=== PATIENT | female | born 1980 | race Caucasian/White ===

== ENCOUNTER 2017-02-07 11:40 | Inpatient (IN) | payer OTHER ==
[~2017-02-07] VITALS: Ht 180.3 cm; Wt 92.0 kg
[~2017-02-07 11:40] MED LIST: PRENATAL MULTI1 EACH PO
--- NOTE | 2017-03-26 08:44 | NUR ---
03/26/17 0844 Bc Foss SEE [facility] FOR VITAL SIGNS. INITAL FUNDAL CHECK DONE AT 0837. SOFT BALL SIZED CLOTS NOTED WITH JOHANNA BLEEDING. UTERUS COMPRESSES FROM 2+ TO ONE UNDER UMBILICUS AFTER FUNDAL PRESSURE. DR BUENROSTRO CALLED AND AT BEDSIDE BY 0840. ORDERS RECIEVED FOR A NEW BAG OF FLUID WITH 30 OF PIT.
--- NOTE | 2017-03-26 08:57 | PR ---
[facility] [address] [facility] [place] [address] Signed PP Progress Notes Datetime Report Generated by CPN: 03/26/2017 08:57 SUBJECTIVE: [id number] Pain: Within normal limits Nausea/Vomiting: Denies Vital Signs: [id number] Vital Signs: Reviewed; Within Normal Limits EXAM: [id number] Lochia: Abnormal Extremities: Normal Incision: Normal IMPRESSION/PLAN/PROCEDURES: [id number] Progress Notes: Immediate passed several large clots, no pain, no dizziness. Massage stopped bleeding and uteruns noted to be firm. Will give additional Pitocin, continue close monitoring Signing Physician: eLeroy Buenrostro MD CC: *Electronically Signed* 03/26/17 0857 LEEROY BUENROSTRO MD PATIENT NAME: HEIDY ECHEVERRIA PROGRESS NOTE DATE OF : 84 PHYSICIAN: LEEROY BUENROSTRO MD RPT #: [id number] REPORT IS CONFIDENTIAL AND NOT TO BE RELEASED WITHOUT AUTHORIZATION
--- NOTE | 2017-03-26 10:17 | OR ---
[facility] [address] [place] [address] Signed DATE OF OPERATION: 03/26/2017 SURGEON: Clay Ferreira MD PREOPERATIVE DIAGNOSIS: Term , previous section x2. POSTOPERATIVE DIAGNOSIS: Term , previous section x2. PROCEDURE: Repeat low transverse segment section. Delivery of live male . SURGEON: Clay Ferreira MD. SKI PATROL: Dr. Mejias. ANESTHESIA: Spinal. ESTIMATED BLOOD LOSS: 600 mL. COMPLICATIONS: None. DRAINS: Mora to bladder. FINDINGS: Live male infant. Apgars 9 and 9. Weight 7 pounds 14 ounces. Normal uterus, normal tubes and ovaries bilateral. DESCRIPTION: The patient was brought into the operating room, placed in supine position. After adequate spinal anesthesia was obtained, she was prepped and draped in usual sterile fashion. Mora catheter was placed in the bladder. A Pfannenstiel skin incision was made through previous surgical scar using a scalpel. The subcutaneous tissue was Electronically Signed By: CLAY FERREIRA MD 03/26/17 1017 PATIENT NAME: HEIDY ECHEVERRIA OPERATIVE REPORT DATE OF : 84 PHYSICIAN: CLAY FERREIRA MD REPORT #: [id number] REPORT IS CONFIDENTIAL AND NOT TO BE RELEASED WITHOUT AUTHORIZATION [facility] [address] [place] [address] Signed dissected with the Bovie and the scalpel. The fascia was nicked with scalpel and extended in transverse fashion using curved scissors. The subcutaneous tissue and fascia were somewhat scarred and the abdominal musculature was somewhat scarred and attached to the fascia. The abdominal musculature was bluntly and sharply from the fascia above and below the incision. The abdominal musculature was bluntly and sharply along the midline using Theodore scissors. The peritoneum was grasped with hemostats, elevated, nicked with Theodore scissors and extended in vertical fashion using Theodore scissors. The uterus was palpated and no adhesions were noted to the uterus. The Tristen self-retaining retractor was inserted into the incision and tightened in place. The lower uterine segment was identified and the bladder identified. The vesicouterine peritoneum was grasped with pickups, elevated, and nicked with Metzenbaum scissors and extended in transverse fashion using Metzenbaum scissors. This was taken down just to help lower the bladder away from the lower uterine segment. The lower uterine segment was somewhat thin. It was nicked in the midline, grasped with Allis-Homer clamps, elevated and then opened, and the incision then extended in a transverse fashion using finger dissection. A bulging bag of clear fluid was drained from the incision. This was opened with pickups with teeth. The infant was noted to be in vertex ELLIS presentation. The head was easily delivered from the incision. The rest of the infant was easily delivered from the incision. The mouth and nose were suctioned to bulb syringe while the cord was doubly clamped and cut. The was passed off the table in good condition to the awaiting nurse. The placenta was manually removed and uterine cavity explored with lap pad to remove any retained membranes. Angle stitch of 0 Monocryl was placed in one end of the incision and running locking stitch of 0 Monocryl starting at the other end used to close the incision. A 2nd running stitch of 0 Monocryl was used to imbricate the 1st layer. Good hemostasis was noted. The entire pelvis was irrigated, suctioned, examined, and noted to have good hemostasis. The Tristen self-retaining retractor was removed. A sheet of ACell was placed over the lower uterine segment to help with healing. The anterior wall of the peritoneum closed using running stitch of 2-0 Vicryl suture. The abdominal musculature was reapproximated using interrupted stitches of 0 Vicryl suture. The abdominal wall was then irrigated, suctioned, and examined and any superficial bleeding spots cauterized with the Bovie. At this point, good hemostasis was noted. So powdered ACell was sprinkled on the abdominal musculature. The fascia was then closed using 2 running stitches of 0 Vicryl suture meeting in the midline. The subcutaneous tissue was irrigated, suctioned, and examined and any bleeding spots are cauterized with the Bovie. The subcutaneous tissue was closed using interrupted stitches of 3-0 Vicryl suture after sprinkling the remaining powdered ACell. The skin was reapproximated using skin clips. The patient tolerated the procedure well and went to recovery room in good condition. The sponge, needle, and instrument count correct at the end of the procedure. Electronically Signed By: CLAY FERREIRA MD 03/26/17 1017 PATIENT NAME: HEIDY ECHEVERRIA OPERATIVE REPORT DATE OF : 84 PHYSICIAN: CLAY FERREIRA MD REPORT #: [id number] REPORT IS CONFIDENTIAL AND NOT TO BE RELEASED WITHOUT AUTHORIZATION [address] [address] Signed MD OSEI Robledo/MODL /[id number] Electronically Signed By: CLAY FERREIRA MD 03/26/17 1017 PATIENT NAME: JUWANHEIDY OPERATIVE REPORT DATE OF : 84 PHYSICIAN: CLAY FERREIRA MD REPORT #: [id number] REPORT IS CONFIDENTIAL AND NOT TO BE RELEASED WITHOUT AUTHORIZATION
--- NOTE | 2017-03-26 11:00 | NUR ---
blood completed at 1040. Report given to FBC RN. FBC RN to complete blood form.
--- NOTE | 2017-03-26 13:07 | PR ---
[facility] [address] [facility] [place] [address] Signed PP Progress Notes Datetime Report Generated by CPN: 03/26/2017 13:07 SUBJECTIVE: [id number] Pain: Within normal limits Nausea/Vomiting: Denies Vital Signs: [id number] Vital Signs: Reviewed; Within Normal Limits Notable Details: Hgb/Hct = 10.4/30.5 DIC Panel: no evidence of DIC EXAM: [id number] Abdomen/Uterus: Normal Lochia: Normal Extremities: Normal Incision: Normal IMPRESSION/PLAN/PROCEDURES: [id number] Other Impression: Stable Procedures: Transfusion Other Procedures: Recieved 1 u PRBC's in Recovery Progress Notes: Doing well, minimal bleeding since Bakri Balloon insertion. Continue to monitor. Rechect H_H this evening. Signing Physician: Leeroy Buenrostro MD CC: *Electronically Signed* 03/26/17 1307 LEEROY BUENROSTRO MD PATIENT NAME: HEIDY ECHEVERRIA PROGRESS NOTE DATE OF : 84 PHYSICIAN: LEEROY BUENROSTRO MD RPT #: [id number] REPORT IS CONFIDENTIAL AND NOT TO BE RELEASED WITHOUT AUTHORIZATION
--- NOTE | 2017-03-26 13:14 | PR ---
[facility] [address] [facility] [place], [place] [address] Signed PP Progress Notes Datetime Report Generated by CPN: 03/26/2017 13:13 SUBJECTIVE: [id number] Pain: Within normal limits Nausea/Vomiting: Denies Vital Signs: [id number] Vital Signs: Reviewed; Within Normal Limits Notable Details: Hgb/Hct = 10.4/30.5 DIC Panel: no evidence of DIC EXAM: [id number] Abdomen/Uterus: Normal Lochia: Normal Extremities: Normal Incision: Normal IMPRESSION/PLAN/PROCEDURES: [id number] Other Impression: Stable Procedures: Transfusion Other Procedures: Recieved 1 u PRBC's in Recovery Progress Notes: Doing well, minimal bleeding since Bakri Balloon insertion. WIll try to keep Bakrin in place for 24 hours, continue Ancef while balloon in place. Continue to monitor. Rechect H_H this evening. Signing Physician: Clay Buenrostro MD CC: *Electronically Signed* 03/26/17 1313 CLAY BUENROSTRO MD PATIENT NAME: SHAILESH ECHEVERRIAJUAN RAO PROGRESS NOTE DATE OF : 84 PHYSICIAN: CLAY BUENROSTRO MD RPT #: [id number] REPORT IS CONFIDENTIAL AND NOT TO BE RELEASED WITHOUT AUTHORIZATION
--- NOTE | 2017-03-28 10:54 | PR ---
[facility] [address] [place] [address] Signed PP Progress Notes Datetime Report Generated by CPN: 03/28/2017 10:54 SUBJECTIVE: [id number] Pain: Within normal limits Nausea/Vomiting: Denies Vital Signs: [id number] Vital Signs: Reviewed; Within Normal Limits Notable Details: HGb/Hct = 8.7/25.2 EXAM: [id number] Abdomen/Uterus: Normal Lochia: Normal Extremities: Normal Incision: Normal IMPRESSION/PLAN/PROCEDURES: [id number] Impression: Normal progression Other Impression: PP Anemia Plan: Discharge Procedures: None Other Procedures: Bakri Balloon removed Progress Notes: Doing well without complaint, ready to go home. Signing Physician: Leeroy Buenrostro MD CC: *Electronically Signed* 03/28/17 1054 LEEROY BUENROSTRO MD PATIENT NAME: HEIDY ECHEVERRIA PROGRESS NOTE DATE OF : 84 PHYSICIAN: LEEROY BUENROSTRO MD RPT #: [id number] REPORT IS CONFIDENTIAL AND NOT TO BE RELEASED WITHOUT AUTHORIZATION
--- NOTE | 2017-03-28 15:25 | OR ---
[facility] [address] [place], [place] [address] Signed DATE OF OPERATION: 03/26/2017 SURGEON: Clay Ferreira MD Patient of Dr. Ferreira. PREOPERATIVE DIAGNOSIS: hemorrhage. POSTOPERATIVE DIAGNOSIS: hemorrhage. PROCEDURE: Exam under anesthesia, curettage, and Bakri balloon insertion. ANESTHESIA: Spinal. ESTIMATED BLOOD LOSS: Approximately [address] to OR plus an additional 100 mL in OR. COMPLICATIONS: None. DRAINS: Mora already in the bladder and Bakri balloon drain from the uterus. FINDINGS: Vagina, small amount of bright red blood. Cervix, 3 cm, no active bleeding. Uterus is enlarged. Normal with minimal clots. No additional placental tissue within the cavity. DESCRIPTION OF PROCEDURE: The patient was brought to the operating room, placed in supine position. The patient recently had section and spinal anesthesia was still working, so the patient was placed on dorsal lithotomy position and prepped and draped abdominally and vaginally for possible exploratory laparotomy in the usual sterile fashion. A weighted speculum was placed in the vagina and anterior and posterior lips of the cervix grasped with a ring forceps. The vagina and cervix were carefully inspected. Ring forceps were removed. Two fingers were placed through the cervix and the uterine cavity explored, Electronically Signed By: CLAY FERREIRA MD 03/28/17 1525 PATIENT NAME: HEIDY ECHEVERRIA OPERATIVE REPORT DATE OF : 84 PHYSICIAN: CLAY FERREIRA MD REPORT #: [id number] REPORT IS CONFIDENTIAL AND NOT TO BE RELEASED WITHOUT AUTHORIZATION [facility] [address] [place], [place] [address] Signed only a few very small clots were removed. No additional tissue was palpated. The ring forceps were placed again on the anterior and posterior lips of the cervix and a large curette carefully introduced through the cervix into the uterus and the uterine cavity carefully gently scraped in 360-degree fashion removing minimal clots. There was still some bleeding coming from the uterus, so the Bakri balloon was brought in the operating field and put together and syringe primed with sterile water. The balloon was carefully inserted through the cervix into the fundus of the uterus and slowly filled with 240 mL of fluid. The balloon could be seen at the cervical os bulging towards the cervix, but was stayed within the uterus. An abdominal ultrasound was done that confirmed the Bakri balloon within the uterus and this was confirmed. The balloon was left in place. The Mora catheter bag attached to the Bakri drain and this was carefully observed for several minutes. At this point, no additional bleeding was seen. There was a small amount of blood within the Bakri drain. Again, no more bleeding vaginally. The ring forceps and weighted speculum were removed. The patient was observed again for several minutes to make sure the bleeding was under control, so the procedure was stopped. The Mora catheter in the bladder and the Bakri catheter in uterus were remained. The patient went to recovery room in good condition. The sponge and instrument count correct at end of procedure. MD OSEI Robledo/JOSUÉL /[id number] Electronically Signed By: CLAY FERREIRA MD 03/28/17 1525 PATIENT NAME: HEIDY ECHEVERRIA OPERATIVE REPORT DATE OF : 84 PHYSICIAN: CLAY FERREIRA MD REPORT #: [id number] REPORT IS CONFIDENTIAL AND NOT TO BE RELEASED WITHOUT AUTHORIZATION
== END 2017-03-28 11:10 | disposition home or self-care (01) | DRG 765 ==
LOC: FBC 03-26 05:47
PROVIDERS: ADMIT General Practice
PROC: 0W3J0ZZ Control Bleeding in Pelvic Cavity, Open Approach (ICD-10-PCS; 2017-03-26)
PROC: 30233N1 Transfusion of Nonautologous Red Blood Cells into Peripheral Vein, Percutaneous Approach (ICD-10-PCS; 2017-03-26)
PROC: 10D00Z1 Extraction of Products of Conception, Low, Open Approach (ICD-10-PCS; principal; 2017-03-26 06:45)
DX: O34.211 Maternal care for low transverse scar from previous cesarean delivery (principal); O72.2 Delayed and secondary postpartum hemorrhage; Z37.0 Single live birth; Z3A.39 39 weeks gestation of pregnancy; O90.81 Anemia of the puerperium
CPT/HCPCS: 00940; 01961; 36415; 36430; 85025; 85027; 85379; 85384; 85610; 85730; 86850; 86900; 86901; 86920; C1763; J0461; J0690; J1200; J1885; J2274; J2405; J2590; J2704; J2765; J3010; J7040; J7120; P9016

== ENCOUNTER 2024-01-14 05:48 | Day surgery (SDC) | payer OTHER ==
[2024-01-09 15:34] VITALS: BP 135/84
[2024-01-13 14:35] LABS: ABO O; RH POSITIVE
[2024-01-13 14:36] LABS: ANTIBODY SCREEN NEGATIVE
[2024-01-13 14:43] LABS: AHG CROSSMATCH COMPATIBLE
[~2024-01-14] VITALS: Ht 182.9 cm; Wt 84.1 kg
[~2024-01-14 05:48] MED LIST changes: +LACTATED RINGER'S 1,000 ML IV SCH
[2024-01-14 05:57] VITALS: BP 125/89
[2024-01-14] MEDS ORDERED: LIDOCAINE HCL 1% 5 ML SDV INJ ONE (07:00)
[2024-01-14] MEDS ORDERED: IBLOOD GLUCOSE TEST STRIP 1 EA TEST VI PRN ×2 (07:00→09:00)
[2024-01-14] MEDS ORDERED: CEFAZOLIN SODIUM 2 GM/20 ML SYR IV SCH (07:00)
--- NOTE | 2024-01-14 07:47 | NUR ---
PT NOT AVAILABLE FOR VISIT. PROVIDED PRAYER.
[2024-01-14] MEDS ORDERED: fentaNYL citrate 100 MCG/2 ML VIAL ONE (08:02)
[2024-01-14] MEDS ORDERED: KETAMINE in NS 50 MG/5 ML SYR ONE (08:02)
[2024-01-14] MEDS ORDERED: HYDROmorphone HCL 2 MG/ML VIAL ONE (08:02)
[2024-01-14] MEDS ORDERED: dexmedeTOMIDine HCl 200 MCG/2 ML VIAL ONE (08:03)
[2024-01-14] MEDS ORDERED: MAGNESIUM SULFATE 1 GM/2 ML VIAL ONE (08:03)
[2024-01-14] MEDS ORDERED: ondansetron HCL 4 MG/2 ML VIAL ONE (08:03)
[2024-01-14] MEDS ORDERED: ACETAMINOPHEN 1,000 MG/100 ML VIAL ONE (08:03)
[2024-01-14] MEDS ORDERED: DEXAMETHASONE SOD PHOS 4 MG/ML VIAL ONE (08:03)
[2024-01-14] MEDS ORDERED: propofoL 200 MG/20 ML VIAL ONE (08:03)
[2024-01-14] MEDS ORDERED: ROCURONIUM BROMIDE 50 MG/5 ML SYR ONE ×2 (08:03→09:15)
[2024-01-14] MEDS ORDERED: SODIUM CHLORIDE 0.9% 40 ML IV ONE (08:03)
[2024-01-14] MEDS ORDERED: LIDOCAINE HCL 2% 5 ML SDV ONE (08:03)
[2024-01-14] MEDS ORDERED: SCOPOLAMINE 1 MG/3 DAYS PATCH 1 EACH TDSY ONE (08:22)
[2024-01-14] MEDS ORDERED: GLYCOPYRROLATE 1 MG/5 ML MDV ONE (08:41)
[2024-01-14] MEDS ORDERED: NALOXONE HCL 0.4 MG SYR IV PRN ×2 (09:00→10:15)
[2024-01-14] MEDS ORDERED: ondansetron HCL 4 MG/2 ML VIAL IV PRN (09:00)
[2024-01-14] MEDS ORDERED: fentaNYL citrate 50 MCG/ML SDV IV PRN (09:00)
[2024-01-14] MEDS ORDERED: droPERidol 5 MG/2 ML VIAL IV PRN (09:00)
[2024-01-14] MEDS ORDERED: KETOROLAC TROMETHAMINE 30 MG/ML VIAL IV PRN (09:00)
[2024-01-14] MEDS ORDERED: ePHEDrine sulfate 50 MG/ML AMP ONE (09:28)
[2024-01-14] MEDS ORDERED: SUGAMMADEX SODIUM 200 MG/2 ML ML ONE (09:50)
[2024-01-14] MEDS ORDERED: SIMETHICONE 125 MG TABLET CHEWABLE PO PRN (10:15)
[2024-01-14] MEDS ORDERED: OXYCODONE/APAP 5/325 TAB PO PRN (10:15)
[2024-01-14] MEDS ORDERED: SEVOFLURANE 250 ML BTL INH ONE (10:19)
[2024-01-14 10:44] VITALS: BP 117/67
--- NOTE | 2024-01-14 10:48 | NUR ---
01/14/24 1048 Alona Flanagan 1010 PT ARRIVED IN PACU WIDE AWAKE WITH NO C/O'S. 1020 RESTING. REU. 1030 NO C/O'S. 1042 TO DS. REPORT GIVEN TO RN. PT'S GLASSES AT BEDSIDE.
--- NOTE | 2024-01-14 10:50 | NUR ---
PT ARRIVED BACK TO DAY SURGERY VIA STRETCHER. ORIENTED TO ROOM AND CALL LIGHT. PT HAS MININMAL PAIN AND NO NAUSEA. 3 LAP SITES TO ABDOMEN WELL APPROXIMATED WITH NO DRAINAGE. PTS AT BEDSIDE.
[2024-01-14 11:44] VITALS: BP 116/68
--- NOTE | 2024-01-14 11:46 | NUR ---
PT SITTING UP IN BED DRINKING WATER AND EATING JELLO. PATIENT COMPLAINS OF PAIN IN ABDOMEN 3/10 AT THIS TIME. REMAINS AT BEDSIDE.
--- NOTE | 2024-01-14 12:02 | NUR ---
PT COMPLAINED OF PAIN 06/26. GAVE 1 TAB PERCOCET 5/325 PO AT THIS TIME.
[2024-01-14 12:46] VITALS: BP 119/68
--- NOTE | 2024-01-14 12:48 | NUR ---
PT UP TO BATHROOM BUT UNABLE TO VOID AT THIS TIME. PT BACK TO BED. IN ROOM.
[2024-01-14] MEDS ORDERED: SIMETHICONE 125 MG TABLET CHEWABLE PO SCH (13:00)
--- NOTE | 2024-01-14 13:39 | NUR ---
1317-PT UP TO RESTROOM. PT ABLE TO VOID A MINIMAL AMOUNT OF URINE. 1320-PT AMBULATES BACK TO BED. 1335-BLADDER SCAN COMPLETE. 160ML OF URINE NOTED IN BLADDER. REFILLED PT'S WATER AND LR RESUMED. CALL LIGTH WITHIN REACH.
[2024-01-14 14:41] VITALS: BP 124/76
--- NOTE | 2024-01-14 14:43 | NUR ---
PT UP TO BATHROOM WITH STANDBY ASSIST AT THIS TIME
--- NOTE | 2024-01-14 14:45 | NUR ---
PT VOIDED 120ML OF URINE AT THIS TIME. PT BACK TO EDGE OF BED. PT STATED, "IM READY TO GO HOME." IN ROOM TO ASSIST PATIENT WITH GETTING DRESSED AT THIS TIME.
--- NOTE | 2024-01-14 14:50 | NUR ---
PT DISCHARGE INSTUCTIONS GIVEN ON MEDICATION, FOLLOW-UP, WHEN TO CONTACT THE MD, DIET, WOUND CARE AND ACTIVITY. PT AND VERBALIZED UNDERSTANDING. PT LEFT FOR HOME VIA WHEELCHAIR.
--- NOTE | 2024-01-17 17:22 | PATH ---
[facility] [address] [place], [place] [address] Signed SPECIMEN(S): A UTERUS, CERVIX, TUBES AND OVARIES SPECIMEN SOURCE: A. UTERUS, CERVIX, TUBES AND OVARIES CLINICAL HISTORY: BRCA2 mutation, risk reduction CA. FINAL PATHOLOGIC DIAGNOSIS: Uterus, cervix, tubes and ovaries: - Benign secretory endometrium, negative for atypical features or evidence of malignancy. - Superficial endometrial adenomyosis. - Benign endo- and ectocervix. - Benign left oviduct with incidental endometriosis. - Benign left ovary with cystic follicles, cystic corpus luteum, and focal benign serous epithelial inclusion cysts. - Benign right oviduct with incidental developmental rest. - Benign right ovary with cystic follicles and hemorrhagic corpus luteum. - Right ovary with incidental benign endometriosis. JVR:jose MICROSCOPIC EXAMINATION: Histologic sections of all submitted blocks are examined by light microscopy. These findings, together with the gross examination, support the pathologic diagnosis. GROSS DESCRIPTION: The specimen, labeled and designated "Yakov Aurelia, uterus, cervix, tubes and ovaries," is received in formalin and consists of uterus with attached cervix, bilateral tubes, and ovaries. The uterus and cervix weighs 96 grams and measures from cervix to fundus 9.2 cm, cornu to cornu 5.0 cm, and anterior to posterior 4.0 cm. The uterine serosa predominantly pink-carlos smooth few areas of focal hemorrhage and defects on the posterior aspect range size from 0.2 to 0.7 cm. The cervix measures 3.4 x 3.0 cm, ectocervix pink-carlos smooth, multiple nabothian cysts range size from 0.2 to 0.5 cm, and the external os ovoid and patent measuring 1.7 cm in greatest dimension. The specimen is opened to reveal triangular-shaped endometrium measuring 3.7 x 3.2 cm and is pink-carlos and thickened ranging PATIENT NAME: HEIDY ECHEVERRIA PATHOLOGY DATE OF : 84 REPORT #: [id number] PHYSICIAN: NICO TREVIÑO PCP: SAMY HARRINGTON MD REPORT IS CONFIDENTIAL AND NOT TO BE RELEASED WITHOUT AUTHORIZATION [facility] [address] [place], [place] [address] Signed from 0.3 to 0.4 cm. The anterior lower uterine segment shows a scarred area measuring 0.6 x 0.5 cm consistent with a possible scar. The myometrial thickness 1.9 cm in greatest dimension. Specimen is sectioned to reveal pink-carlos slightly trabeculated cut surfaces. The left fallopian tube measures 6.5 x 0.8 cm with attached fimbriated end. The left ovary measures 2.7 x 2.5 x 1.7 cm and weighs 6 grams. The outer surface pink-carlos convoluted and is sectioned to reveal pink-carlos solid to cystic cut surfaces stain throughout. No gross identifiable discrete lesions seen. The right fallopian tube measures 5.9 x 0.7 cm with attached fimbriated end and multiple peritubular cysts range size from 0.1 to 0.4 cm greatest dimension. The right ovary measures 3.5 x 3.4 x 1.8 cm and weighs 11 grams. Outer surface pink-carlos smooth and convoluted. The ovary is sectioned to reveal pink-carlos solid to cystic cut surfaces seen throughout. No gross identifiable discrete lesions seen. The entire fallopian tubes and ovaries are submitted. Ruling Machine Set Up Operator sections are submitted. Cassette Summary: (A1) traveling representative sections of cervix (A2) traveling representative sections of endometriummyometrium (A3-A6) entire left fallopian tube sectioned from distal to proximal (A7-A11) entire left ovary (A12-A15) entire right fallopian tube sectioned from distal to proximal (A16-A22) entire right ovary JM (under the direct supervision of a pathologist) The Gross Description was prepared using a voice recognition system. The report was reviewed for accuracy; however, sound-alike word errors, addition and/or deletions may occur. If there is any question about this report, please contact Client Services. PERFORMING LABORATORY: Technical component was performed by [facility], [address] [place] [id number] (CLIA# [id number]). Professional interpretation was performed by [email or web address], [address] [place] [id number] (CLIA#: [id number]). Diagnostician: Liang Yao MD Pathologist Electronically Signed 01/17/2024 PATIENT NAME: HEIDY ECHEVERRIA PATHOLOGY DATE OF : 84 REPORT #: [id number] PHYSICIAN: [facility] PCP: SAMY HARRINGTON MD REPORT IS CONFIDENTIAL AND NOT TO BE RELEASED WITHOUT AUTHORIZATION [facility] [address] [place] [address] Signed Copies: ~ PATIENT NAME: HEIDY ECHEVERRIA PATHOLOGY DATE OF : 84 REPORT #: [id number] PHYSICIAN: NICO TREVIÑO PCP: SAMY HARRINGTON MD REPORT IS CONFIDENTIAL AND NOT TO BE RELEASED WITHOUT AUTHORIZATION
== END 2024-01-14 14:55 | disposition home or self-care (01) ==
LOC: OPS 05:48 → DS 05:48 → OPS 07:30 → EDSTATUS 07:30 → MS 07:30 → OPS 14:55
PROVIDERS: ATTEND Obstetrics & Gynecology
PROC: 0UT2FZZ Resection of Bilateral Ovaries, Via Natural or Artificial Opening With Percutaneous Endoscopic Assistance (ICD-10-PCS; 2024-01-14)
PROC: 0UB77ZZ Excision of Bilateral Fallopian Tubes, Via Natural or Artificial Opening (ICD-10-PCS; 2024-01-14)
PROC: 0UT9FZZ Resection of Uterus, Via Natural or Artificial Opening With Percutaneous Endoscopic Assistance (ICD-10-PCS; principal; 2024-01-14 07:30)
DX: Z40.09 Encounter for prophylactic removal of other organ (principal); N80.202 Endometriosis of left fallopian tube, unspecified depth; N80.101 Endometriosis of right ovary, unspecified depth; N83.12 Corpus luteum cyst of left ovary; N83.11 Corpus luteum cyst of right ovary; N83.202 Unspecified ovarian cyst, left side; N80.03 Adenomyosis of the uterus; Z15.01 Genetic susceptibility to malignant neoplasm of breast
CPT/HCPCS: 00840; 36415; 86850; 86900; 86901; 86922; A9270; J0131; J0690; J1100; J1171; J2003; J2405; J2704; J3010; J3475; J3490; J7121